=== PATIENT | male | born 1955 | race Caucasian/White ===

== ENCOUNTER → 2020-05-11 | Outpatient (CLI) | payer BC ==
--- NOTE | 2020-05-11 16:24 | XR ---
EXAMINATION TYPE: XR lumbosacral spine min 4V DATE OF EXAM: 05/11/2020 COMPARISON: None HISTORY: Back pain TECHNIQUE: Five-view lumbar spine FINDINGS: There is a retrolisthesis of L2 on L3. Disc heights are preserved. Vertebral body heights a re preserved. Alignment is otherwise unremarkable. Minimal facet degenerative changes present. There 5 lumbar-type tubal bodies. Pedicles are intact. IMPRESSION: 1. Retrolisthesis of L2 on L3. 2. Minimal diffuse facet hypertrophy.
== END | disposition home or self-care (01) ==
LOC: RADXRYALE 15:51
PROVIDERS: ATTEND Family Medicine
DX: M43.16 Spondylolisthesis, lumbar region (principal)
CPT/HCPCS: 72110

== ENCOUNTER → 2024-02-29 | Outpatient (CLI) | payer OTHER ==
--- NOTE | 2024-02-29 15:33 | US ---
EXAMINATION TYPE: US venous doppler duplex UE LT DATE OF EXAM: 02/29/2024 COMPARISON: NONE CLINICAL INDICATION: Male, 68 years old with history of R60.0 LOCALIZED EDEMA; Lt ulnar nerve revisio n surgery 1 week ago, severe pain swelling and redness lt wrist/hand SIDE PERFORMED: left Left Arm: Negative for DVT there is subcutaneous edema around the surgical site extending down the left forearm. Most severe swe lling is imaged at the anterior hand. IMPRESSION: 1. Left upper extremity ultrasound negative for deep venous thrombosis.
== END | disposition home or self-care (01) ==
LOC: RADUSWWP 13:11
PROVIDERS: ATTEND Orthopaedic Surgery
DX: R60.0 Localized edema (principal)